=== PATIENT | female | born 1940 | race Two or more races ===

== ENCOUNTER 2020-08-23 09:55 | Emergency (ER) | payer OTHER ==
[~2020-08-23] VITALS: Ht 167.6 cm; Wt 46.0 kg
[2020-08-23] MEDS ORDERED: ACETAMINOPHEN 325MG TABLET PO STA (10:32)
[2020-08-23] MEDS ORDERED: SODIUM CHLORIDE 0.9% 500 ML IV ONE (10:45)
[2020-08-23 12:05] LABS: MEAN CORPUSCULAR VOLUME 89.2 fL (81.0-99.0); RED BLOOD CELL COUNT 1.62 mill/uL (4.2-5.4); RED CELL DISTRIBUTION WIDTH 16.4 % (11.6-14.6)
[2020-08-23 12:17] LABS: INR 1.3; PROTHROMBIN TIME 13.5 sec (9.6-11.0)
[2020-08-23 12:20] LABS: CHLORIDE 108 mEq/L (98-107); HEMOGLOBIN. 4.9 g/dL (12.0-16.0)
[2020-08-23 12:21] LABS: HEMATOCRIT. 14.5 % (36.0-48.0); PLATELET 29 x1000/uL (130-400)
[2020-08-23 13:17] LABS: PLATELET ESTIMATE MARKEDLY DECREASED
[2020-08-23] MEDS ORDERED: POTASSIUM CHLORIDE 20MEQ TABLET SR PO ONE (13:30)
[2020-08-23] MEDS ORDERED: CEFEPIME HCL 1000MG/VIAL INJ IM ONE (13:30)
[2020-08-23 17:27] VITALS: BP 140/54
== END 2020-08-23 17:45 | disposition short-term general hospital (02) ==
LOC: ER 09:55 → CANBEDREQ 20:07
DX: D70.9 Neutropenia, unspecified (principal); R50.81 Fever presenting with conditions classified elsewhere; D64.9 Anemia, unspecified; D61.818 Other pancytopenia; Z85.71 Personal history of Hodgkin lymphoma
CPT/HCPCS: 36415; 70450; 71045; 80053; 83605; 84145; 85025; 85610; 86850; 86900; 86901; 86920; 87040; 87077; 87186; 93005; 96360; 96361; 96372; 99285; J0692; J7040; P9016